=== PATIENT | male | born 1980 | race Caucasian/White ===

== ENCOUNTER 2021-10-09 22:08 | Emergency (ER) | payer OTHER, SELFPAY ==
[2021-10-09 22:22] VITALS: BP 137/82; PULSE 100; RESP 18; TEMP 37.2; O2SAT 99; BMI 21.7
[2021-10-09 22:52] LABS: Basophils Percent Auto 0.2 % (0-2); Eosinophils Absolute Auto 0.1 X10*3/uL (0.0-0.4); Eosinophils Percent Auto 0.7 % (0-4); Hematocrit 42.4 % (42.0-52.0); Hemoglobin 14.6 g/dl (14.0-18.0); Imm Gran Abs Auto 0.05 X10*3/uL (0.00-0.03); Imm Gran Pct Auto 0.3 % (0.0-0.4); Lymphocytes Absolute Auto 3.4 X10*3/uL (1.2-4.9); Lymphocytes Percent Auto 20.4 % (20-40); MANUAL DIFF FLAG SCAN; Mean Corpuscular HGB Conc 34.4 g/dl (31.0-36.0); Mean Corpuscular Hemoglobin 30.9 pg (27.0-33.0); Mean Corpuscular Volume 89.8 fL (80.0-98.0); Mean Platelet Volume 11.1 fL (9.4-12.4); Monocytes Absolute Auto 1.7 X10*3/uL (0.1-1.2); Monocytes Percent Auto 10.1 % (2-11); Neutrophils Absolute Auto 11.3 x10*3/uL (2.0-8.3); Neutrophils Percent Auto 68.3 % (45-73); Platelet Count 220 X10*3/uL (160-400); Red Blood Count 4.72 X10*6/uL (4.60-5.80); Red Cell Distribution Width 12.9 % (11.0-16.0); SCAN SMEAR FLAG 1; White Blood Count 16.6 X10*3/uL (4.8-10.8)
[2021-10-09 23:03] LABS: Anion Gap 13 (12-20); Blood Urea Nitrogen 15 mg/dL (9-16); Calcium 9.2 mg/dL (8.4-10.2); Carbon Dioxide 27 mmol/L (22-29); Chloride 103 mmol/L (96-108); Estimated Glomerular Filt Rate > 60; Glucose Random 94 mg/dL (60-115); Potassium 4.2 mmol/L (3.3-5.1); Sodium 139 mmol/L (135-145)
[2021-10-09 23:11] LABS: SLIDE REVIEW VERIFIED
[2021-10-10 00:45] LABS: Appearance Urine CLOUDY; Color Urine YELLOW; Glucose Urine UA NEG (NEG); Leukocyte Esterase Urine 3+ (NEG); Nitrite Urine POS (NEG); UACC Culture Trigger YES; Urine Blood 3+ (NEG); Urine Ketones NEG (NEG); Urine Protein TRACE MG/DL (NEG-TRACE)
--- NOTE | 2021-10-10 00:48 | ED_ITS ---
HPI - Male Genitourinary General Chief complaint: Urogenital-Male Stated complaint: abd pain/genital pain Time Seen by Provider: 10/10/21 00:19 Source: patient Mode of arrival: ambulatory Limitations: language barrier History of Present Illness HPI Narrative: 41-year-old male presents with lower abdominal pain, penile burning, and dysuria. MD Complaint: penile discharge Onset (ago): day(s) (1) Duration: constant Location: penis Severity: moderate Severity scale (1-10): 7 Quality: burning Relieving factors: none Exacerbating factors: urination and sexual intercourse Associated symptoms: Reports denies other symptoms Related Data Sexually active: Yes Previous Rx's Medication Instructions Recorded levofloxacin 750 mg tablet 750 mg PO Q24H 5 days #5 tabs 10/10/21 Allergies Allergy/AdvReac Type Severity Reaction Status Date / Time No Known Allergies Allergy Verified 10/09/21 22:20 Review of Systems Review of Systems: Constitutional: No Fever, No Chills ENT/Mouth: No Ear Pain, No Hoarseness, No sore throat Eyes: No Eye Pain, No Swelling, No Redness, No Foreign Body Cardiovascular: No Chest Pain, No SOB Respiratory: No Cough, No Dyspnea Gastrointestinal: No Nausea, No Vomiting, No Diarrhea, No abdominal Pain Genitourinary: Positive Dysuria, No Hematuria, positive penile burning Musculoskeletal: No joint pain, No Myalgias, No Joint Swelling Skin: No Skin lacerations, No rash Neuro: No Weakness, No Numbness, No Paresthesias, No Loss of Consciousness, No Dizziness, No Headache Psych: No Anxiety/Panic, No Depression Heme/Lymph: no easy bruising, no Lymphadenopathy Endocrine: No Polyuria, No Polydipsia Yes all other systems are reviewed and are negative [facility] Past Medical History Attestation statement: The following information was validated with the patient. Source: old records reviewed Social History Social History Advance Directives: No Advance Directives Information Provided: No Physical Exam Vital Signs: Vital Signs: Last Vital Signs Temp 99 F 10/09/21 22:22 Pulse 100 10/09/21 22:22 Resp 18 10/09/21 22:22 BP 137/82 10/09/21 22:22 Pulse Ox 99 10/09/21 22:22 O2 Del Method 10/09/21 22:22 BMI result Body Mass Index 21.7 Appearance: Alert. Oriented X3. Moderate distress. Eyes: Pupils equal, round and reactive to light. ENT: Pharynx normal. Neck: Normal inspection. Neck supple. CVS: Normal heart rate and rhythm. Pulses normal. Respiratory: No respiratory distress. Breath sounds normal. Genitourinary: No lesions noted to the penis. No testicular pain on palpation. Abdomen: Soft and nontender. Skin: Skin warm and dry. Normal skin color. Normal skin turgor. Extremities: No lower extremity edema. Gait well-balanced well coordinated. Neuro: No motor deficit. No sensory deficit. Cranial nerves 2-12 intact. Course Course Course Narrative: 41-year-old male presents with dysuria, penile burning, and lower back pain for day. States that he does perform anal sex. White count is 16. Urinalysis positive for heme, nitrites, leukocyte esterase, and white blood cells. Patient is not disclosing too much information but states that he would like to be treated for sexually transmitted infections. Will treat with ceftriaxone azithromycin, and give Levaquin 750 mg for the next 5 days. spanish interpreter utilized for all correspondence. Google translate utilized for discharge instructions. Patient verbalized understanding of and agrees to plan of care to discharge home. Verbalized understanding of signs and symptoms indicating need for emergent intervention MDM - Male Genitourinary Differential Diagnosis Differential diagnosis: Likely urinary tract infection, urethritis and prostatitis Medical Records Attestation: I reviewed the patient's medical records. Lab Data Attestation: I reviewed the patient's lab results. Result diagrams: 10/09/21 22:42 10/09/21 22:42 Labs: Lab Results 10/09/21 10/09/21 10/10/21 Range/Units 22:42 22:42 00:21 WBC 16.6 H (4.8-10.8) X10*3/uL RBC 4.72 (4.60-5.80) X10*6/uL Hgb 14.6 (14.0-18.0) g/dl Hct 42.4 (42.0-52.0) % MCV 89.8 (80.0-98.0) fL MCH 30.9 (27.0-33.0) pg MCHC 34.4 (31.0-36.0) g/dl RDW 12.9 (11.0-16.0) % Plt Count 220 (160-400) X10*3/uL MPV 11.1 (9.4-12.4) fL Immature Gran % (Auto) 0.3 (0.0-0.4) % Neut % (Auto) 68.3 (45-73) % Lymph % (Auto) 20.4 (20-40) % [place] % (Auto) 10.1 (2-11) % Eos % (Auto) 0.7 (0-4) % Baso % (Auto) 0.2 (0-2) % Lymph # (Auto) 3.4 (1.2-4.9) X10*3/uL [place] # (Auto) 1.7 H (0.1-1.2) X10*3/uL Eos # (Auto) 0.1 (0.0-0.4) X10*3/uL Baso # (Auto) 0.0 (0.0-0.2) X10*3/uL Abs Immat Gran (auto) 0.05 H (0.00-0.03) X10*3/uL Absolute Neuts (auto) 11.3 H (2.0-8.3) x10*3/uL Absolute Nucleated RBC 0.000 (0.0-0.012) X10*3/uL Nucleated RBC % (auto) 0.0 (0.0-0.2) /100WBC Smear Tech's Comments VERIFIED Sodium 139 (135-145) mmol/L Potassium 4.2 (3.3-5.1) mmol/L Chloride 103 (96-108) mmol/L Carbon Dioxide 27 (22-29) mmol/L Anion Gap 13 (12-20) BUN 15 (9-16) mg/dL Creatinine 1.11 (0.5-1.4) mg/dL Estim Creat Clear Calc 75.0 Estimated GFR > 60 Random Glucose 94 (60-115) mg/dL Calcium 9.2 (8.4-10.2) mg/dL Urine Color YELLOW Urine Appearance CLOUDY Urine pH 6.0 (5.0-8.0) Ur Specific [place] 1.020 (1.005-1.025) Urine Protein TRACE (NEG-TRACE) MG/DL Urine Glucose (UA) NEG (NEG) MG/DL Urine Ketones NEG (NEG) MG/DL Urine Blood 3+ H (NEG) Urine Nitrite POS H (NEG) Ur Leukocyte Esterase 3+ H (NEG) Discharge Plan Discharge Clinical Impression: Urinary tract infection Patient Disposition: Home, Self-Care Instructions: Urinary Tract Infection in Men (ED) Additional Instructions: Usted est? siendo tratado por iqra infecci?n del tracto urinario. [place] Levaquin 750 mg verna los pr?ximos 5 d?as. Joann un seguimiento con el ur?logo Dr. Roa. Por favor llame y solicite iqra janes. Le dimos azitromicina 1000 mg por v?a oral y ceftriaxona 500 mg inyecci?n IM mientras estaba en el departamento de emergencias. Beber mucho l?quido. Si los s?ntomas empeoran, regrese. Earline por elegir kita departamento de emergencias para wren evaluaci?n. Por favor, joann un seguimiento con el m?dico de atenci?n primaria seg?n sea necesario. Regrese al departamento de emergencias por cualquier s?ntoma nuevo, preocupante o que empeore. You are being treated for urinary tract infection. Please take Levaquin 750 mg for the next 5 days. Please follow-up with urologist Dr. Roa. Please call and request an appointment. We gave you azithromycin 1000 mg by mouth and ceftriaxone 500 mg IM injection while you were in the emergency department. Drink plenty of fluids. If symptoms worsen please return. Thank you for choosing this emergency department for evaluation. Please follow-up with primary care physician as needed. Return to the emergency department for any new, concerning, or worsening symptoms. Prescriptions: New levofloxacin 750 mg tablet 750 mg PO Q24H 5 Days Qty: 5 0RF Referrals: Juan Manuel Roa MD [Physician] - ([facility])
[2021-10-10 00:53] LABS: Bacteria Urine 2+ /LPF; Mucus Urine 1+ /LPF; Squamous Epithelial Cell Urine 2+ /LPF
[2021-10-10] MEDS: cefTRIAXone sodium 500 MG, Lidocaine HCl 1 % MPF 1 ML IM (01:27)
[2021-10-10] MEDS: Azithromycin 500 MG TABLET 1000 MG PO (01:28)
[2021-10-10 11:01] LABS: CT PCR NOT DETECTED (Not Detect.); NG PCR NOT DETECTED (Not Detect.)
== END 2021-10-10 02:11 | disposition home or self-care (01) ==
PROVIDERS: Nurse Practitioner Family; Emergency Provider Internal Medicine
DX: N39.0 Urinary tract infection, site not specified (principal)
CPT/HCPCS: 36415; 80048; 81001; 85025; 87086; 87088; 87186; 87491; 87591; 96372; 99283; 99284; J0696

== ENCOUNTER 2021-10-17 10:31 | Emergency (ER) | payer OTHER, SELFPAY ==
--- NOTE | ~2021-10-17 | CT_ITS ---
EXAMINATION: CT ABDOMEN AND PELVIS WITHOUT CONTRAST CLINICAL INFORMATION: Kidney stone. Flank pain. COMPARISON: None TECHNIQUE: Multidetector volumetric imaging was performed from the superior aspect of the liver through the pubic symphysis. Sagittal and coronal reformatted images were obtained on the technologist's workstation. This CT examination was performed using dose optimization techniques as appropriate, variously including the following: *Automated exposure control *Adjustment of mA and/or kV according to patient size (this includes techniques or standardized protocols for targeted exams where dose is matched to indication/reason for exam; i.e. extremities or head) *Use of iterative reconstruction technique DLP: 361 mGy-cm FINDINGS: LUNG BASES: The visualized lung bases are unremarkable. LIVER, GALLBLADDER, AND BILIARY TREE: The liver is normal in size, shape, and attenuation. No focal hepatic lesion or biliary ductal dilatation is present. The gallbladder is unremarkable with no evidence of radiopaque gallstones, gallbladder wall thickening, or obvious pericholecystic inflammatory changes. PANCREAS: Unremarkable. SPLEEN: Unremarkable. ADRENAL GLANDS: Unremarkable. KIDNEYS AND URETERS: The kidneys are normal in size, shape, and attenuation. No hydronephrosis, hydroureter, or calculi seen. No perinephric stranding. BLADDER: Unremarkable. GASTROINTESTINAL TRACT: The small and large bowel are unremarkable. The appendix is unremarkable. ABDOMINAL WALL: No significant hernia is appreciated. LYMPH NODES: Normal. VASCULAR: Unremarkable. PELVIC VISCERA: Unremarkable. OSSEOUS STRUCTURES: Unremarkable. CT/CT abdomen pelvis wo con IMPRESSION: No significant abnormality. Fleischner guidelines were followed.
[2021-10-17 10:55] VITALS: BP 119/68; PULSE 69; RESP 18; TEMP 36.7; O2SAT 100; BMI 22.5
[2021-10-17 11:26] LABS: MANUAL DIFF FLAG NO
[2021-10-17 11:31] LABS: Appearance Urine CLEAR; Color Urine DK YELLOW; Glucose Urine UA NEG (NEG); Leukocyte Esterase Urine NEG (NEG); Nitrite Urine NEG (NEG); PH 6.5 (5.0-8.0); Urine Blood NEG (NEG); Urine Ketones 5 MG/DL (NEG); Urine Protein NEG (NEG-TRACE)
[2021-10-17 11:31] LABS: Basophils Percent Auto 0.4 % (0-2); Eosinophils Absolute Auto 0.1 X10*3/uL (0.0-0.4); Eosinophils Percent Auto 1.5 % (0-4); Hematocrit 40.2 % (42.0-52.0); Hemoglobin 13.6 g/dl (14.0-18.0); Imm Gran Abs Auto 0.01 X10*3/uL (0.00-0.03); Imm Gran Pct Auto 0.1 % (0.0-0.4); Lymphocytes Absolute Auto 2.5 X10*3/uL (1.2-4.9); Lymphocytes Percent Auto 31.4 % (20-40); Mean Corpuscular HGB Conc 33.8 g/dl (31.0-36.0); Mean Corpuscular Hemoglobin 30.8 pg (27.0-33.0); Mean Corpuscular Volume 91.2 fL (80.0-98.0); Mean Platelet Volume 10.9 fL (9.4-12.4); Monocytes Absolute Auto 0.8 X10*3/uL (0.1-1.2); Monocytes Percent Auto 9.8 % (2-11); Neutrophils Absolute Auto 4.6 x10*3/uL (2.0-8.3); Neutrophils Percent Auto 56.8 % (45-73); Platelet Count 208 X10*3/uL (160-400); Red Blood Count 4.41 X10*6/uL (4.60-5.80); Red Cell Distribution Width 12.5 % (11.0-16.0); White Blood Count 8.1 X10*3/uL (4.8-10.8)
[2021-10-17 11:49] LABS: Alanine Aminotransferase 28 U/L (0-40); Alkaline Phosphatase 84 U/L (39-117); Anion Gap 12 (12-20); Aspartate Amino Transferase 23 U/L (5-37); Bilirubin Direct 0.2 mg/dL (0.0-0.5); Bilirubin Total 0.4 mg/dL (0.0-1.0); Blood Urea Nitrogen 9 mg/dL (9-16); Calcium 8.7 mg/dL (8.4-10.2); Carbon Dioxide 29 mmol/L (22-29); Chloride 106 mmol/L (96-108); Creatinine Clr Calc Pharmacy 94.2; Estimated Glomerular Filt Rate > 60; Glucose Random 84 mg/dL (60-115); Lipase 28 U/L (8-78); Potassium 4.6 mmol/L (3.3-5.1); Sodium 142 mmol/L (135-145)
--- NOTE | 2021-10-17 13:34 | ED_ITS ---
HPI - Male Genitourinary General Chief complaint: Urogenital-Male Stated complaint: abd pain/lower back pain Time Seen by Provider: 10/17/21 11:02 History of Present Illness HPI Narrative: The patient complains of low abdominal pain just above the pubic bone that radiates up into his upper abdomen, he was treated last week for possible sexually transmitted disease for urinary tract infection with antibiotic which she was compliant with, he has no vomiting no diarrhea no dysuria no discharge no testicular pain or swelling Related Data Previous Rx's Medication Instructions Recorded levofloxacin 750 mg tablet 750 mg PO Q24H 5 days #5 tabs 10/10/21 acetaminophen 500 mg tablet 1,000 mg PO QID PRN pain #30 tabs 10/17/21 ibuprofen 600 mg tablet 600 mg PO Q6H PRN pain #20 tabs 10/17/21 oxycodone 5 mg tablet 5 mg PO Q6H PRN pain #10 tabs 10/17/21 Allergies Allergy/AdvReac Type Severity Reaction Status Date / Time No Known Allergies Allergy Verified 10/17/21 09:45 Review of Systems Review of Systems: Positive for suprapubic low abdominal pain Negative no fever no chills no dizziness weakness no headache no neck pain no chest pain no other abdominal pain no dysuria no frequency no discharge no testicular pain or swelling no nausea vomiting or diarrhea no skin rashes Yes all other systems are reviewed and are negative [facility] Past Medical History Source: nursing notes reviewed Social History Social History Advance Directives: No Advance Directives Information Provided: No Physical Exam Vital Signs: Vital Signs: Last Vital Signs Temp 98.0 F 10/17/21 10:55 Pulse 69 10/17/21 10:55 Resp 18 10/17/21 10:55 BP 119/68 10/17/21 10:55 Pulse Ox 100 10/17/21 10:55 O2 Del Method 10/17/21 10:55 BMI result Body Mass Index 22.5 General appearance is no acute distress comfortable appearing Head is normocephalic atraumatic Pupils equal round reactive to light, anicteric no pallor Pharynx is clear no redness swelling or exudate, mucous membranes moist Neck is supple Chest clear to auscultation bilateral Heart no murmur Abdomen showed some very mild suprapubic tenderness there was no other abdominal tenderness no rebound no guarding Genital exam was normal there was no testicular swelling or tenderness no redness no penile discharge no rash no lesions Extremities full range of motion x4 Skin no rashes Course Course Course Narrative: CT abdomen did not reveal any acute pathology or kidney stones, labs did not reveal any acute abnormality, no signs of any emergent findings Patient does have a urology appointment scheduled and he is advised that his pain today is very unlikely to be dangerous or emergent and he will follow routinely and come back here any time anything worse [facility] - Male Genitourinary Medical Records Attestation: I reviewed the patient's medical records. Lab Data Result diagrams: 10/17/21 11:22 10/17/21 11:22 Labs: Lab Results 10/17/21 10/17/21 10/17/21 Range/Units 11:20 11:22 11:22 WBC 8.1 (4.8-10.8) X10*3/uL RBC 4.41 L (4.60-5.80) X10*6/uL Hgb 13.6 L (14.0-18.0) g/dl Hct 40.2 L (42.0-52.0) % MCV 91.2 (80.0-98.0) fL MCH 30.8 (27.0-33.0) pg MCHC 33.8 (31.0-36.0) g/dl RDW 12.5 (11.0-16.0) % Plt Count 208 (160-400) X10*3/uL MPV 10.9 (9.4-12.4) fL Immature Gran % (Auto) 0.1 (0.0-0.4) % Neut % (Auto) 56.8 (45-73) % Lymph % (Auto) 31.4 (20-40) % [place] % (Auto) 9.8 (2-11) % Eos % (Auto) 1.5 (0-4) % Baso % (Auto) 0.4 (0-2) % Lymph # (Auto) 2.5 (1.2-4.9) X10*3/uL [place] # (Auto) 0.8 (0.1-1.2) X10*3/uL Eos # (Auto) 0.1 (0.0-0.4) X10*3/uL Baso # (Auto) 0.0 (0.0-0.2) X10*3/uL Abs Immat Gran (auto) 0.01 (0.00-0.03) X10*3/uL Absolute Neuts (auto) 4.6 (2.0-8.3) x10*3/uL Absolute Nucleated RBC 0.000 (0.0-0.012) X10*3/uL Nucleated RBC % (auto) 0.0 (0.0-0.2) /100WBC Sodium 142 (135-145) mmol/L Potassium 4.6 (3.3-5.1) mmol/L Chloride 106 (96-108) mmol/L Carbon Dioxide 29 (22-29) mmol/L Anion Gap 12 (12-20) BUN 9 (9-16) mg/dL Creatinine 0.97 (0.5-1.4) mg/dL Estim Creat Clear Calc 94.2 Estimated GFR > 60 Random Glucose 84 (60-115) mg/dL Calcium 8.7 (8.4-10.2) mg/dL Total Bilirubin 0.4 (0.0-1.0) mg/dL Direct Bilirubin 0.2 (0.0-0.5) mg/dL AST 23 (5-37) U/L ALT 28 (0-40) U/L Alkaline Phosphatase 84 (39-117) U/L Total Protein 7.0 (6.5-8.0) g/dL Albumin 4.0 (3.5-5.0) g/dL Lipase 28 (8-78) U/L Urine Color DK YELLOW Urine Appearance CLEAR Urine pH 6.5 (5.0-8.0) Ur Specific [place] 1.020 (1.005-1.025) Urine Protein NEG (NEG-TRACE) MG/DL Urine Glucose (UA) NEG (NEG) MG/DL Urine Ketones 5 (NEG) MG/DL Urine Blood NEG (NEG) Urine Nitrite NEG (NEG) Ur Leukocyte Esterase NEG (NEG) Discharge Plan Discharge Clinical Impression: Abdominal pain in male Patient Disposition: Home, Self-Care Additional Instructions: Workup today did not show any dangerous cause, your exam and vital signs did not show any sign of infection or surgical emergency Testing was all normal and did not show any sign of any dangerous for emergency condition Follow with urologist as scheduled and her primary doctor Return to the ER any time any worse condition or any concerns Prescriptions: New acetaminophen 500 mg tablet 1,000 mg PO QID PRN (Reason: pain) Qty: 30 0RF ibuprofen 600 mg tablet 600 mg PO Q6H PRN (Reason: pain) Qty: 20 0RF oxycodone 5 mg tablet 5 mg PO Q6H PRN (Reason: pain) Qty: 10 0RF Rx Instructions: Partial Fill upon patient request. No Action levofloxacin 750 mg tablet 750 mg PO Q24H 5 Days Qty: 5 0RF Interventions: ED Discharge Assessment Last Done: 10/17/21 13:34 Discharge Date/Time: 10/17/21 13:35
== END 2021-10-17 13:35 | disposition home or self-care (01) ==
PROVIDERS: Physician Assistant Medical; Emergency Provider Student in an Organized Health Care Education/Training Program
DX: R10.30 Lower abdominal pain, unspecified (principal)
CPT/HCPCS: 74176; 80048; 80076; 81003; 83690; 85025; 99283; 99284

== ENCOUNTER → 2021-11-18 11:30 | Outpatient (BNVA) | payer OTHER, SELFPAY | DX: N41.9 Inflammatory disease of prostate, unspecified (principal) | CPT/HCPCS: 99202 ==